=== PATIENT | male | born 1995 | race Caucasian/White ===

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

== ENCOUNTER 2017-09-05 18:33 | Emergency (ER) | payer OTHER ==
[2017-09-05 18:53] VITALS: TEMP 98.2
--- NOTE | 2017-09-05 20:03 | EDPHY ---
HPI/HX/ROS/PE/MDM Narrative: CHIEF COMPLAINT: Fall, head injury HPI: This patient is a 21 year old male complaining of headache and vomiting secondary to an accidental fall yesterday evening around 11pm. He has history of prior concussions from hockey. Yesterday, he was going up the stairs and slipped, falling backwards about 6-7 stairs and striking his head on a post. He experienced a flash and a brief period of black vision, but denies loss of consciousness. One hour following this event, he vomited. He was able to sleep following this. This morning, he woke with a severe headache and has slept most of the day. He has not vomited again. His symptoms feel similar to those with his previous concussions. He denies any hemiparesis, numbness, or paresthesias. Of note, the patient has experienced frequent migraines, 2-3 per week, over the past two months. He was evaluated recently and is taking daily medication for migraine prevention. He did take this medication today. He denies any recent illness or other recent trauma. REVIEW OF SYSTEMS: Aside from elements discussed in the HPI, a comprehensive 10-point review of systems was reviewed and is negative. PMH: Prior concussions. Migraines. SOCIAL HISTORY: Father at bedside. Single. Lives in [place]. PHYSICAL EXAM: General:Patient is alert, in no acute distress. Head: Mild soft tissue swelling to right parietal area. ENT:Eyes are normal to inspection. ENT inspection normal. Neck: Normal inspection. Full range of motion. Respiratory:No respiratory distress. Breath sounds normal bilaterally. Cardiovascular: Regular rate and rhythm. Strong peripheral pulses. Normal cap refill. Abdomen:The abdomen is nontender to palpation. There are no peritoneal signs. There are normal bowel sounds. Back: Normal to inspection. No tenderness to palpation. Skin: Normal color. No rash. Warm and dry. Extremities: Normal appearance. Full range of motion. Neuro: Oriented x3. Normal motor function. Normal sensory function. No pronator drift. Normal finger to nose. Normal heel to lewis. ED Course: 21 year old male presents with headache following an accidental fall yesterday evening. Exam reveals mild soft tissue swelling to the right parietal area. The patient is neurologically intact. Discussed risks and benefits of CT head. Patient and his father prefer to proceed with CT. 20:[address] Alis, radiologist. CT head negative for acute hemorrhage. Small hematoma to right frontal scalp. Evidence of sphenoid sinusitis. Reassessed patient. Discussed results with him and his father. Plan to discharge home in good condition. Referral to ENT provided for further evaluation of the patient's sinusitis. Concussion follow up and return precautions discussed. Patient is currently following up with a specialist for his migraines, additional referral to concussion specialist provided. The patient is comfortable with this plan. - Data Points Imaging Results: Imaging Impressions Head CT 09/05/17 20:07 Impression: Small right frontal scalp hematoma. Sphenoid sinus mucosal disease. Otherwise negative. Results called to Dr. Drake at 8:27 PM. General information for patients regarding this examination can be found at [email or web address]. If you have questions or comments about this report, please contact me at (hospital) or [phone] (cell). Imaging: Discussed imaging studies w/ call center recruiter Radiologist General Time Seen by Provider: 09/05/17 19:48 Initial Vital Signs: Initial Vital Signs Temperature (C) 36.8 C 09/05/17 18:49 Heart Rate 78 09/05/17 18:49 Respiratory Rate 16 09/05/17 18:49 Blood Pressure 142/100 H 09/05/17 18:49 O2 Sat (%) 97 09/05/17 18:49 O2 Delivery Mode Room Air Allergies/Adverse Reactions: bacitracin [From Neosporin ([id number])] Allergy (Unknown, Verified 09/05/17 18:48) Home Medications: Medication Instructions Recorded [place] 02/07/13 Departure - Departure Disposition: Home, Routine, Self-Care Clinical Impression: Concussion Qualifiers: Encounter type: initial encounter Loss of consciousness presence/duration: without LOC Qualified Code(s): S06.0X0A - Concussion without loss of consciousness, initial encounter Sphenoid sinusitis Qualifiers: Chronicity: unspecified Qualified Code(s): J32.3 - Chronic sphenoidal sinusitis Condition: Good Instructions: Sinusitis (ED), Concussion (ED) Additional Instructions: 1. Follow-up with your primary care doctor this week. We have referred you to a concussion specialist, please follow up with her as well for continued management of your symptoms. 2. Brain rest - try to avoid TV, video games, cell phones, or reading while symptoms persist. You may reintroduce activities as tolerated. 3. Physical rest - avoid activities that could result in further head injury or that require prolonged attention until your symptoms completely resolve. 4. You may take Tylenol or Ibuprofen as directed below as needed for pain. 5. Return to the Emergency Department for severe headache, vomiting, vision changes, confusion, fever or other concerns. 6. As we discussed, there is evidence of sphenoid sinusitis on your CT. Follow up with an ear, nose, and throat specialist for further evaluation. We have referred you to our ENT specialist dish person. Adult Pain & Fever Control: We recommend Acetaminophen (Tylenol) and Ibuprofen (Motrin,Advil) for pain and fever control. When fever is high or pain severe, both drugs can be used at the same time, but at different intervals. Please note the time differences. Your dose is: Acetaminophen 650mg every 4 to 6 hours Ibuprofen 600mg every 6-8 hours with food Note: do not take Acetaminophen with Hydrocodone (Vicodin, Lortab) or Oxycodone (Percocet). These medications also contain Acetaminophen. No more than 3000mg of Acetaminophen should be taken in 24 hours (for an adult). Referrals: Salazar Orellana MD [Primary Care Provider] - As per Instructions Randi Valladares MD [Medical Doctor] - As per Instructions Scooby Duque MD [Medical Doctor] - As per Instructions Report Scribed for: Tarik Drake Report Scribed by: Samara Aquino Date of Report: 09/05/17 Time of Report: 20:42 Physician Review and Approval Statement: Portions of this note were transcribed by an ED scribe. I personally performed the history, physical exam, and medical decision making; and confirm the accuracy of the information in the transcribed note.
[2017-09-05 20:56] VITALS: BP 132/81; PULSE 67; RESP 18; O2SAT 94
== END 2017-09-05 20:55 | disposition home or self-care (01) ==
DX: S06.0X0A Concussion without loss of consciousness, initial encounter (principal); J32.3 Chronic sphenoidal sinusitis; W01.198A Fall on same level from slipping, tripping and stumbling with subsequent striking against other object, initial encounter; Y99.8 Other external cause status; Y93.01 Activity, walking, marching and hiking